=== PATIENT | male | born 1965 | race Caucasian/White ===

== ENCOUNTER 2019-12-29 10:16 | Emergency (ER) | payer SELFPAY ==
--- NOTE | ~2019-12-29 | XR_ITS ---
EXAMINATION: XR_[id number]_CR DATE: 12/29/2019 11:07 INDICATION: Lower right rib pain. TECHNIQUE: A frontal view of the chest and 3 views of the right ribs were obtained. COMPARISON: None. FINDINGS: There is no pneumonia, pleural effusion, or pneumothorax. The heart size is normal. There a re fractures of the right second through fifth ribs. IMPRESSION: 1. Fractures of the right second through fifth ribs. Reviewed, dictated and finalized at location A.
--- NOTE | ~2019-12-29 | XR_ITS ---
EXAMINATION: XR shoulder RT min 2V DATE: 12/29/2019 11:07 INDICATION: Right shoulder pain. TECHNIQUE: 3 views of right shoulder were obtained. COMPARISON: None. FINDINGS: Bone alignment is normal. There are fractures of the right second through fifth ribs. Gleno humeral joint is normal. 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 IMPRESSION: 1. Fractures of the right second through fifth ribs. Reviewed, dictated and finalized at location A.
--- NOTE | ~2019-12-29 | CT_ITS ---
EXAMINATION: CT brain wo con DATE: 12/29/2019 10:56 INDICATION: Head injury. TECHNIQUE: Computed tomography (CT) of the head was performed without intravenous contrast. The mA wa s adjusted according to patient size. Iterative reconstruction technique was employed. The dose-lengt h product was 681.00 mGy-cm. COMPARISON: None FINDINGS: There is no intracranial hemorrhage, acute infarction, or abnormal intracranial mass lesion . The ventricles are normal in size. There is mild mucosal thickening in the paranasal sinuses. The o rbits are normal. The mastoid air cells are normal. IMPRESSION: 1. Normal brain. Reviewed, dictated and finalized at location A. IMPRESSION: 1. Normal brain.
--- NOTE | ~2019-12-29 | XR_ITS ---
EXAMINATION: XR wrist RT min 3V DATE: 12/29/2019 11:15 INDICATION: Pain and swelling after fall TECHNIQUE: Posteroanterior, ulnar deviation, oblique, and lateral views of the right wrist were obtai pete. COMPARISON: None available FINDINGS: There is no fracture, dislocation, or subluxation. Soft tissue swelling is seen at the palm ar aspect of the hand. The joint spaces are normal. IMPRESSION: 1. Soft tissue swelling without acute osseous abnormality. Reviewed, dictated and finalized at location A.
--- NOTE | ~2019-12-29 | CT_ITS ---
EXAMINATION: CT cervical spine wo con DATE: 12/29/2019 10:57 INDICATION: Head injury. TECHNIQUE: Computed tomography (CT) of the cervical spine was performed without intravenous contrast. Automated exposure control and iterative reconstruction technique were employed. The dose-length pro duct was 413.36 mGy-cm. COMPARISON: None FINDINGS: There is mild emphysema. There is mild kyphosis of upper cervical spine. Vertebral body hei ghts are normal. There is mildly decreased disc height at C6-C7. The following disc levels are specif ically discussed: C2-C3: There is no uncovertebral joint osteoarthritis. There is mild bilateral facet joint osteoarthr itis. There is no neural foraminal stenosis. There is no central canal stenosis. C3-C4: There is moderate bilateral uncovertebral joint osteoarthritis. There is mild bilateral facet joint osteoarthritis. There is mild bilateral neural foraminal stenosis. There is no central canal st enosis. C4-C5: There is no uncovertebral joint osteoarthritis. There is moderate right and mild left facet juan carlos int osteoarthritis. There is no neural foraminal stenosis. There is no central canal stenosis. C5-C6: There is no uncovertebral joint osteoarthritis. There is mild right and moderate left facet juan carlos int osteoarthritis. There is no neural foraminal stenosis. There is no central canal stenosis. C6-C7: There is no uncovertebral joint osteoarthritis. There is mild right and severe left facet join t osteoarthritis. There is mild left neural foraminal stenosis. There is mild central canal stenosis. C7-T1: There is no uncovertebral joint osteoarthritis. There is severe bilateral facet joint osteoart hritis. There is mild bilateral neural foraminal stenosis. There is no central canal stenosis. IMPRESSION: 1. No fracture. 2. Mild cervical spondylosis. Reviewed, dictated and finalized at location A.
--- NOTE | 2019-12-29 10:27 | ED.FALL ---
HPI - Fall General Chief Complaint: Fall Stated Complaint: fall 8 ft from ladder Time Seen by Provider: 12/29/19 10:17 Source: patient Mode of arrival: ambulatory Limitations: no limitations History of Present Illness HPI Narrative: This patient is a 54 year old male who presents with complaint of left shoulder, left rib pain s/p fall off ladder. PAtient states just prior to arrival he was on a ladder removing siding from his house, and the ladder slipped causing him to fall off. His friend states he landed on the landscaping stones. Patient did not lose consciousness but he states he was confused for a few minutes. He denies neck pain. He has right shoulder and right rib pain. PRior to arrival he reported he had shortness of breath due to pain with breathing. He does not take anticoagulation. He states he only takes medication for anxiety. MD complaint: fall Fall from: from height (distance) (7-8 feet off ladder) Fall witnessed: yes, by family (friend) Place fall occurred: home Loss of consciousness: none Context: tripped/slipped Related Data Home Medications Medication Instructions Recorded Confirmed citalopram mg 12/29/19 Allergies Allergy/AdvReac Type Severity Reaction Status Date / Time No Known Allergies Allergy Verified 12/29/19 10:26 Review of Systems Review of Systems: All systems reviewed & are unremarkable except as noted in HPI and below Constitutional: Constitutional: Denies chills and Denies fever(s) Eyes: Eyes: Reports no additional eye complaints, Denies change in vision and Denies photophobia Respiratory: Respiratory: Denies chest congestion, Denies cough and Denies wheezing Gastrointestinal: Gastrointestinal: Denies abdominal pain, Denies nausea and Denies vomiting Musculoskeletal: Musculoskeletal: Denies back pain and Reports arthralgias (right shoulder pain) Neurologic: Denies dizziness PMF Past Medical History Medical History (Updated 12/29/19 @ 12:45 by Mackenzie Downey MD) Anxiety Surgical History Surgical History (Updated 12/29/19 @ 10:28 by Mackenzie Downey MD) S/P left knee arthroscopy Social History Social History (Updated 12/29/19 @ 10:29 by Mackenzie Downey MD) Smoking packs per day: 1 Smoking cigarettes per day: 20.0 Smoking status: Current every day smoker Exam Const: General: no acute distress and alert Orientation/consciousness: patient oriented x3 HENMT: Head: other (right temporal small hematoma with abrasion, ) Ears: external ears normal and TM's normal bilaterally General nose exam: Normal external nose present and Normal nares present Face and sinus: sinuses nontender and face symmetric Mouth: Yes lip normal and Yes tongue normal Eyes: Pupils: Equal, round and reactive pupils present EOM: EOMs intact bilaterally Neck: Other: in cervical collar Chest: Chest palpation & inspection: tenderness (right lateral posterior tenderness, no crepitus, no swelling) Resp: Effort & Inspection: normal respiratory effort and no retractions Auscultation: clear to auscultation bilaterally Cardio: Rate: regular rate Rhythm: regular rhythm Heart sounds: no murmurs GI: Inspection: distended GI Palp: Yes Soft to palpation and No Tenderness to palpation present (GI) Skin: Other: left forearm with laceration 4 cm Neuro: General: patient oriented x3 and moves all extremities Extrem: Other: right shoulder tenderness, right wrist tenderness with mild swelling, Course Vital Signs Vital signs: Vital Signs Temperature 98.1 F 12/29/19 10:45 Pulse Rate 78 12/29/19 10:45 Respiratory Rate 14 12/29/19 10:45 Blood Pressure 157/108 H 12/29/19 10:45 Pulse Oximetry 98 12/29/19 10:45 Temperature 98.1 F 12/29/19 10:45 Pulse Rate 70 12/29/19 13:01 Respiratory Rate 14 12/29/19 13:01 Blood Pressure 152/64 H 12/29/19 13:01 Pulse Oximetry 99 12/29/19 13:01 Procedures Laceration Laceration 1:
[2019-12-29] MEDS: ONDANSETRON INJ 4 MG/2 ML VIAL IV PUSH (10:42)
[2019-12-29] MEDS: MORPHINE SULFATE 4 MG/ML INJ IV PUSH (10:42)
[2019-12-29 10:45] VITALS: BP 157/108; PULSE 78; RESP 14; TEMP 36.7; O2SAT 98
[2019-12-29 10:51] VITALS: RESP 14; O2SAT 99
[2019-12-29] MEDS: TETANUS,DIPHTHERIA,AC PERTUSSIS ADULT (0.5 ML) BOOSTRIX IM (11:26)
--- NOTE | 2019-12-29 11:40 | PC.NURSE ---
C-collar removed by EDP. No cervical fractures.
[2019-12-29 13:01] VITALS: BP 152/64; PULSE 70; RESP 14; O2SAT 99
== END 2019-12-29 13:02 | disposition home or self-care (01) ==
PROVIDERS: Emergency Provider General Practice; PCP Family Medicine
DX: S22.41XA Multiple fractures of ribs, right side, initial encounter for closed fracture (principal); S09.90XA Unspecified injury of head, initial encounter; S40.011A Contusion of right shoulder, initial encounter; S51.812A Laceration without foreign body of left forearm, initial encounter; M47.812 Spondylosis without myelopathy or radiculopathy, cervical region; F17.210 Nicotine dependence, cigarettes, uncomplicated; F41.9 Anxiety disorder, unspecified; W11.XXXA Fall on and from ladder, initial encounter; Z23 Encounter for immunization
CPT/HCPCS: 12002; 70450; 71101; 72125; 73030; 73110; 90471; 90715; 96374; 96375; 99284; J2270; J2405

== ENCOUNTER 2020-01-07 08:11 | Emergency (ER) | payer SELFPAY ==
--- NOTE | ~2020-01-07 | XR_ITS ---
XR wrist RT min 3V DATE: 01/07/2020 08:35 INDICATION: Fall. Right wrist injury, pain, swelling TECHNIQUE: 4 views COMPARISON: 12/29/2019 right wrist FINDINGS: No recent fracture or dislocation is detected. IMPRESSION: No recent fracture or dislocation Reviewed, dictated and finalized at location A.
[2020-01-07 08:16] VITALS: BP 142/97; PULSE 72; RESP 18; TEMP 36.7; O2SAT 98
--- NOTE | 2020-01-07 08:28 | ED.UPPEXIN ---
HPI - Extremity Injury (Upper) General Chief Complaint: Extremity Injury, Upper Stated Complaint: right wrist pain Time Seen by Provider: 01/07/20 08:25 History of Present Illness HPI narrative: Fall 1 week ago at work. Sustained multiple rib fractures, left forearm laceration and a contusion to the right hand and wrist. He returns today because the right wrist has become more painful and bruising is spreading up the forearm. He also mentions that he continues to have rib pain and is out of pain medication. Additionally it is time for his stitches to deep out. Related Data Home Medications Medication Instructions Recorded Confirmed citalopram mg 12/29/19 Allergies Allergy/AdvReac Type Severity Reaction Status Date / Time No Known Allergies Allergy Verified 01/07/20 08:19 Review of Systems Review of Systems: All systems reviewed & are unremarkable except as noted in HPI and below Constitutional: Constitutional: Denies fever(s) Respiratory: Respiratory: Denies dyspnea Genitourinary: Genitourinary: Denies dysuria Musculoskeletal: Musculoskeletal: Denies back pain Neurologic: Denies dizziness and Denies headache(s) [facility] Past Medical History Medical History Anxiety Surgical History Surgical History S/P left knee arthroscopy Social History Social History Smoking packs per day: 1 Smoking cigarettes per day: 20.0 Smoking status: Current every day smoker Exam Const: General: healthy appearing, no acute distress and alert Orientation/consciousness: patient oriented x3 HENMT: Head: normal to inspection Neck: Neck: normal visual inspection and no lymphadenopathy Chest: Chest palpation & inspection: tenderness Resp: Effort & Inspection: normal respiratory effort Auscultation: clear to auscultation bilaterally, no rales, no rhonchi and no wheezes Cardio: Jugular venous distension: no JVD Rate: regular rate Rhythm: regular rhythm Heart sounds: no murmurs GI: Inspection: non-distended GI Palp: Yes Soft to palpation and No Tenderness to palpation present (GI) Skin: Other: healing laceration to left forearm with sutures in place Neuro: General: patient oriented x3 and moves all extremities Speech: normal speech Extrem: Other: bruising to right forearm Psych: Appearance: well kempt Affect: normal affect Course Vital Signs Vital signs: Vital Signs Temperature 36.7 C 01/07/20 08:16 Pulse Rate 72 01/07/20 08:16 Respiratory Rate 18 01/07/20 08:16 Blood Pressure 142/97 H 01/07/20 08:16 Pulse Oximetry 98 01/07/20 08:16 Temperature 36.7 C 01/07/20 08:16 Pulse Rate 72 01/07/20 08:16 Respiratory Rate 18 01/07/20 08:16 Blood Pressure 142/97 H 01/07/20 08:16 Pulse Oximetry 98 01/07/20 08:16 Procedures Other Procedure Procedure 1: Other Procedure: Suture removal performed MDM - Extremity Injury (Upper) MDM Narrative Medical decision making narrative: bruising is likely a hematoma diffusing. I will prescribe a short term supply of pain medication for his rib fractures. Medical Records Attestation: I reviewed the patient's medical records. Lab Data Attestation: I reviewed the patient's lab results. Imaging Data Radiologist's impression: ITS Impressions Wrist X-Ray 01/07/20 08:39 IMPRESSION: No recent fracture or dislocation Discharge Plan Discharge Clinical Impression: Contusion of right wrist, Fracture of rib, Encounter for removal of sutures Patient Disposition: Home, Self-Care Condition: Stable Instructions: Antibiotic Form Prescriptions: New hydrocodone-acetaminophen [[place]] 5-325 mg tablet 1 tablet PO Q6H PRN (Reason: pain) Qty: 20 RF: 0 No Action citalopram 20 mg tablet RF: 0 hydrocodone-acetaminophen [[place]]
== END 2020-01-07 10:00 | disposition home or self-care (01) ==
PROVIDERS: Emergency Provider Emergency Medicine; PCP Family Medicine
DX: S60.211A Contusion of right wrist, initial encounter (principal); S51.812D Laceration without foreign body of left forearm, subsequent encounter; S22.49XD Multiple fractures of ribs, unspecified side, subsequent encounter for fracture with routine healing; F41.9 Anxiety disorder, unspecified; F17.210 Nicotine dependence, cigarettes, uncomplicated; W19.XXXD Unspecified fall, subsequent encounter; W19.XXXA Unspecified fall, initial encounter
CPT/HCPCS: 73110; 99283

== ENCOUNTER 2020-03-03 15:54 | Emergency (ER) | payer SELFPAY ==
[2020-03-03 16:00] VITALS: RESP 20; TEMP 37.2; O2SAT 97
[2020-03-03 16:06] VITALS: BP 147/97; PULSE 77
--- NOTE | 2020-03-03 16:07 | ED.GENADULT ---
HPI - General Adult General Chief complaint: Dizziness Stated complaint: dizziness/seeing colors Time Seen by Provider: 03/03/20 16:08 Source: patient and RN notes reviewed Mode of arrival: ambulatory Limitations: no limitations History of Present Illness HPI narrative: 54-year-old male presents with complaints of dizziness, URI symptoms, and LT ear pressure that has been going on for the past hour. José says he was driving home and started seeing colors and having dizziness out of his peripheral vision. Symptoms area about the same now as they were when they started. No treatment. Symptoms are similar to past vertigo episodes. Exacerbating factors consist of increase of cold symptoms, such as nasal congestion. URI symptoms which consist of rhinorrhea, head congestion being treating with Mucinex all-in-one cold and flu without relief. Denies fever or chills. Denies ear pain, ear itching, ear trauma, trauma to head, syncopal episodes, altered vision, altered speech, confusion, or seizure activity. Denies headache, numbness or tingling in extremities. Denies chest pain or dyspnea. Remains active. The patient reports he have not been diagnosed with COVID-19. The patient reports he is not waiting for the results of a COVID-19 lab test. The patient reports he do not have fever, chills, weakness, or fatigue. The patient reports he do not have a new or worsening cough or shortness of breath. Denies chest pain. The patient reports he do not have any sore throat, nausea, vomiting, abdominal pain, and diarrhea. Tolerating po intake well. Denies recent traveling. Denies concerns for COVID-19 or exposures been home with limited outdoor exposure except for essential household needs, work, and return home. At this time, patient is not suspected of having COVID-19. Some parts of this dictation were generated by voice recognition software and may contain typographical and/or grammatical inaccuracies. Related Data Home Medications Medication Instructions Recorded Confirmed citalopram mg 12/29/19 Allergies Allergy/AdvReac Type Severity Reaction Status Date / Time No Known Allergies Allergy Verified 03/03/20 16:38 Review of Systems Review of Systems: Narrative: CONSTITUTIONAL: Denies fever, chills, sweats. EYES: Complains of visual changes. Denies redness, discharge. ENT: Complains of rhinorrhea, congestion, LT ear pressure. Denies sore throat, otalgia. CARDIOVASCULAR: Denies chest pain, palpitations, edema. RESPIRATORY: Denies dyspnea, wheezing, cough. GASTROINTESTINAL: Denies abdominal pain, nausea, vomiting, diarrhea. GENITOURINARY: Denies dysuria, hematuria, abnormal discharge. SKIN: Denies lesions, itching, drainage. MUSCULOSKELETAL: Denies acute back pain, joint pain, or myalgia. NEUROLOGIC: Denies numbness or focal weakness. Complains of dizziness. PSYCHIATRIC: Denies anxiety or depression. All systems reviewed & are unremarkable except as noted in HPI and below. [facility] Past Medical History Medical History Anxiety Surgical History Surgical History S/P left knee arthroscopy Family History Family History (Updated 03/03/20 @ 16:21 by QUEENIE Hewitt) Father Hypertension Mother Alive and well Social History Social History (Updated 03/03/20 @ 16:23 by QUEENIE Hewitt) Smoking packs per day: 1 Smoking cigarettes per day: 20.0 Years smoked: 30 Smoking pack-years: 30.00 Smoking status: Current every day smoker Tobacco type: cigarettes Second hand tobacco smoke exposure: No Alcohol intake: current Substance use: never Living arrangements: with family Occupation/Education: occupation Gender identity (if verbalized by the patient): Male Comments At time of signature, agree with nurse past medical, surgical, social, and family history. There is relev
[2020-03-03 16:10] VITALS: BP 143/107; BP 147/97; PULSE 80; PULSE 82
--- NOTE | 2020-03-03 16:11 | ECG_ITS ---
Measurements Intervals [place] Rate: 77 P: 55 SC: 173 QRS: 42 QRSD: 96 T: 39 QT: 385 QTc: 436 Interpretive Statements SINUS RHYTHM BASELINE ARTIFACT- I, II, III, AVR, AVL, AVF, V1-V3 NORMAL ECG Electronically Signed On 03-04-2020 14:19:47 CDT by Moreno Menon D.O.
[2020-03-03] MEDS: MECLIZINE HCL 25 MG TABLET PO (16:30)
[2020-03-03 16:37] LABS: Glucose Point of Care 82 (65-105)
== END 2020-03-03 16:54 | disposition home or self-care (01) ==
PROVIDERS: Emergency Provider Nurse Practitioner Family
DX: R42 Dizziness and giddiness (principal); J06.9 Acute upper respiratory infection, unspecified; Z20.828 Contact with and (suspected) exposure to other viral communicable diseases; F41.9 Anxiety disorder, unspecified
CPT/HCPCS: 82948; 93005; 99213; A9270; G0463